=== PATIENT | male | born 2000 | race Caucasian/White ===

== ENCOUNTER 2023-06-10 00:03 | Emergency (ER) | payer SELFPAY ==
[~2023-06-10] VITALS: Ht 180.3 cm; Wt 85.5 kg
[2023-06-10 00:20] VITALS: BP 140/66; PULSE 59; RESP 18; TEMP 97.6; O2SAT 97
== END 2023-06-10 03:30 | disposition home or self-care (01) ==
LOC: ER 00:03
DX: S20.314A Abrasion of middle front wall of thorax, initial encounter (principal); W57.XXXA Bitten or stung by nonvenomous insect and other nonvenomous arthropods, initial encounter; Y93.89 Activity, other specified; Y92.89 Other specified places as the place of occurrence of the external cause; Y99.8 Other external cause status
CPT/HCPCS: 99281